=== PATIENT | male | born 1985 | race African-American/Black ===

== ENCOUNTER 2021-01-24 12:23 | Emergency (ER) | payer OTHER ==
[~2021-01-24] VITALS: Ht 167.6 cm; Wt 61.3 kg
[2021-01-24 13:03] VITALS: BP 143/92
[2021-01-24] MEDS ORDERED: ERYT1OIN6 OP (13:22)
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
== END 2021-01-24 13:54 | disposition home or self-care (01) ==
LOC: ER 12:23
DX: H00.015 Hordeolum externum left lower eyelid (principal); H01.005 Unspecified blepharitis left lower eyelid
CPT/HCPCS: 99283